=== PATIENT | female | born 1940 | race Caucasian/White ===

== ENCOUNTER 2018-05-02 11:14 | Inpatient (IN) | payer MEDICARE, OTHER ==
[2018-05-02] MEDS: SODIUM CHLORIDE 0.9% 1L BAG IV* (11:32)
[2018-05-02 11:41] LABS: ADD MAN DIFF? NO
[2018-05-02 11:43] LABS: BASOPHIL # 0.1 10^3/ul (0.0-0.1); BASOPHILS % 0.4 % (0.0-2.0); HEMATOCRIT 39.7 % (37.0-47.0); HEMOGLOBIN 13.1 g/dl (12.0-16.0); LYMPHOCYTES # 0.7 10^3/ul (0.8-2.9); LYMPHOCYTES % 3.5 % (15.0-51.0); MEAN CORPUSCULAR HEMOGLOBIN 32.7 pg (29.0-33.0); MEAN PLATELET VOLUME 11.3 fl (7.4-10.4); MONOCYTE # 1.3 10^3/ul (0.3-0.9); MONOCYTES % 6.5 % (0.0-11.0); NEUTROPHILS % 88.9 % (39.0-77.0); PLATELET COUNT 198 10^3/UL (140-415); RED BLOOD COUNT 4.01 10^6/ul (4.20-5.40); RED CELL DISTRIBUTION WIDTH 13.5 % (11.5-14.5)
[2018-05-02 11:43] LABS: WHITE BLOOD COUNT 19.1 10^3/ul (4.8-10.8)
[2018-05-02 12:05] LABS: INR 1.05; PROTIME 13.8 Sec (11.9-14.9); PT RATIO 1.1
[2018-05-02 12:06] LABS: PARTIAL THROMBOPLASTIN TIME 31.8 Sec (25.0-35.0)
[2018-05-02 12:11] LABS: LACTIC ACID 2.1 mmol/L (0.5-2.0)
[2018-05-02 12:12] LABS: ALANINE AMINOTRANSFERASE 96 IU/L (13-69); ALBUMIN 3.4 g/dl (3.3-4.9); ALBUMIN/GLOBULIN RATIO 0.75; ALKALINE PHOSPHATASE 169 IU/L (42-121); ANION GAP 16 (8-16); ASPARTATE AMINO TRANSFERASE 80 IU/L (15-46); BILIRUBIN,INDIRECT 0.3 mg/dl (0-1.1); BILIRUBIN,TOTAL 0.3 mg/dl (0.2-1.3); BLOOD UREA NITROGEN 36 mg/dl (7-20); CALCIUM 8.8 mg/dl (8.4-10.2); CARBON DIOXIDE 23 mmol/L (21-31); CHLORIDE 102 mmol/L (97-110); CREATININE 2.22 mg/dl (0.44-1.00); GLUCOSE 152 mg/dl (70-220); LIPASE 91 U/L (23-300); POTASSIUM 4.7 mmol/L (3.5-5.1); SODIUM 136 mmol/L (135-144); TOTAL PROTEIN 7.9 g/dl (6.1-8.1)
[2018-05-02] MEDS: VANCOMYCIN 1 GM (PMX) 250 ML IVPB (12:20)
[2018-05-02 12:24] LABS: B-TYPE NATRIURETIC PEPTIDE 2090 PG/ML (0-450); TROPONIN-I 0.015 ng/ml (0.000-0.120)
[2018-05-02] MEDS: CEFEPIME 2GM/50 ML (PMX) 50 ML IVPB (12:26)
[2018-05-02 12:50] LABS: AADO2 Arterial 41.5 mmHg (7.0-24.0); Allen Test ACCEPTAB; Arterial Base Excess -5.3 mmol/L (-3.0-3); Arterial Blood Gas Oxygen Sat 93.8 mmHG (95.0-100.0); Arterial COHb 0.6 % (0.0-3.0); Arterial MetHb 0.3 % (0.0-1.5); Arterial Total Hemglobin 12.7 g/dl (12.0-18.0); Arterial pCO2 33.2 mmhg (35-45); MODE ROOM AIR; Site Right Radial
[2018-05-02] MEDS: LIDOCAINE 1% (MPF) 5 ML VIAL SC (13:45)
[2018-05-02 13:57] LABS: LACTIC ACID 1.5 mmol/L (0.5-2.0)
[2018-05-02] MEDS: METHYLPREDNISOLONE 40 MG INJ IV (15:00)
[2018-05-02] MEDS ORDERED: VANCOMYCIN IV PER PHARMACY XX (15:00)
[2018-05-02] MEDS: ENOXAPARIN 80 MG/0.8 ML SYG SC (15:01)
[2018-05-02 15:22] LABS: ADD UMIC YES; UR ASCORBIC ACID NEGATIVE (NEGATIVE); UR BACTERIA MANY /HPF (NONE SEEN); UR BILIRUBIN (Dip) NEGATIVE (NEGATIVE); UR BLOOD (Dip) 2+ mg/dL (NEGATIVE); UR CLARITY TURBID (CLEAR); UR COLOR YELLOW (YELLOW); UR GLUCOSE (Dip) NEGATIVE (NEGATIVE); UR KETONES (Dip) NEGATIVE (NEGATIVE); UR LEUKOCYTE ESTERASE (Dip) 3+ Leu/ul (NEGATIVE); UR NITRITE (Dip) NEGATIVE (NEGATIVE); UR RBC 54 /HPF (0-5); UR SPECIFIC GRAVITY (Dip) 1.012 (1.003-1.030); UR SQUAMOUS EPITHELIAL CELL FEW /HPF (FEW); UR TOTAL PROTEIN (Dip) 2+ mg/dl (NEGATIVE); UR UROBILINOGEN (Dip) NEGATIVE (NEGATIVE); UR WBC > 182 /HPF (0-5)
[2018-05-02] MEDS: HYDROCODONE/APAP (10/325) TAB PO ×2 (15:51→17:41)
[2018-05-02] MEDS: VANCOMYCIN 1.5 GM in SOD CHLORIDE 0.9% 250 ML IVPB (16:42)
[2018-05-02] MEDS ORDERED: NACL 0.9% 3 ML SYG IV (17:30)
[2018-05-02 18:00] LABS: LACTIC ACID 1.6 mmol/L (0.5-2.0)
[2018-05-02] MEDS ORDERED: GLUCAGON 1 MG INJ IM (18:00)
[2018-05-02] MEDS ORDERED: GLUCOSE GEL 15 GRAM TUBE BUCCAL (18:00)
[2018-05-02] MEDS ORDERED: GLUCOSE GEL 15 GRAM TUBE PO ×2 (18:00)
[2018-05-02] MEDS ORDERED: DEXTROSE 50% 50 ML SYRINGE IV ×2 (18:00)
[2018-05-02] MEDS: INSULIN ASPART [NOVOLOG] 3 ML PEN SC ×2 (18:25→20:46)
[2018-05-02] MEDS: VANCOMYCIN 500MG/NS (PMX) 100 ML IVPB (18:56)
[2018-05-02] MEDS: LORAZEPAM 0.5 MG TAB PO (21:38)
[2018-05-02] MEDS: DOCUSATE SODIUM 100 MG CAP PO (21:39)
[2018-05-03] MEDS: LORAZEPAM 2 MG INJ IV ×2 (00:53→21:48)
[2018-05-03 06:19] LABS: HEMATOCRIT 35.8 % (37.0-47.0); HEMOGLOBIN 11.6 g/dl (12.0-16.0); MEAN CORPUSCULAR HEMOGLOBIN 32.5 pg (29.0-33.0); MEAN CORPUSCULAR HGB CONC 32.4 g/dl (32.0-37.0); MEAN CORPUSCULAR VOLUME 100.3 fl (82.0-101.0); MEAN PLATELET VOLUME 11.7 fl (7.4-10.4); PLATELET COUNT 179 10^3/UL (140-415); RED BLOOD COUNT 3.57 10^6/ul (4.20-5.40); RED CELL DISTRIBUTION WIDTH 13.7 % (11.5-14.5)
[2018-05-03 06:19] LABS: WHITE BLOOD COUNT 14.1 10^3/ul (4.8-10.8)
[2018-05-03 06:40] LABS: ADD MAN DIFF? YES; POSITIVE DIFF @See below
[2018-05-03 06:43] LABS: ALANINE AMINOTRANSFERASE 77 IU/L (13-69); ALBUMIN 2.9 g/dl (3.3-4.9); ALBUMIN/GLOBULIN RATIO 0.74; ALKALINE PHOSPHATASE 135 IU/L (42-121); ANION GAP 13 (8-16); ASPARTATE AMINO TRANSFERASE 54 IU/L (15-46); BILIRUBIN,INDIRECT 0.2 mg/dl (0-1.1); BILIRUBIN,TOTAL 0.2 mg/dl (0.2-1.3); BLOOD UREA NITROGEN 37 mg/dl (7-20); CALCIUM 8.7 mg/dl (8.4-10.2); CARBON DIOXIDE 20 mmol/L (21-31); CHLORIDE 110 mmol/L (97-110); CREATININE 1.56 mg/dl (0.44-1.00); GLUCOSE 142 mg/dl (70-220); POTASSIUM 4.3 mmol/L (3.5-5.1); SODIUM 139 mmol/L (135-144); TOTAL PROTEIN 6.8 g/dl (6.1-8.1)
[2018-05-03 06:58] LABS: HEMOGLOBIN A1C 5.9 % (0-5.9)
[2018-05-03 07:07] LABS: THYROID STIMULATING HORMONE 0.252 MIU/L (0.465-4.680)
[2018-05-03] MEDS: INSULIN ASPART [NOVOLOG] 3 ML PEN SC ×4 (07:55→21:00)
[2018-05-03] MEDS: DOCUSATE SODIUM 100 MG CAP PO ×2 (08:49→21:47)
[2018-05-03] MEDS: ENOXAPARIN 30 MG/0.3 ML SYG SC (08:50)
[2018-05-03] MEDS: ATENOLOL 50 MG TAB PO (08:51)
[2018-05-03] MEDS: POLYETHYLENE GLYCOL 17 GM PACKET PO (08:51)
[2018-05-03] MEDS ORDERED: CEFEPIME 1GM/50 ML (PMX) 50 ML IVPB (12:00)
[2018-05-03] MEDS: MEROPENEM 1 GM/50ML(PMX) 50 ML IVPB (14:43)
[2018-05-03] MEDS: HYDROCODONE/APAP (5/325) TAB PO (14:44)
[2018-05-03] MEDS: VANCOMYCIN 750 MG in SOD CHLORIDE 0.9% 150 ML IVPB (17:37)
[2018-05-03] MEDS: LORATADINE 10 MG TAB PO (21:30)
[2018-05-03] MEDS: DIPHENHYDRAMINE 50 MG CAP PO (22:58)
[2018-05-03] MEDS: PIPER-TAZO 2.25 GM (PMX) 50 ML IVPB (23:42)
[2018-05-04] MEDS: HYDROCODONE/APAP (5/325) TAB PO ×3 (00:58→17:12)
[2018-05-04] MEDS: PIPER-TAZO 2.25 GM (PMX) 50 ML IVPB ×3 (05:42→17:12)
[2018-05-04] MEDS: INSULIN ASPART [NOVOLOG] 3 ML PEN SC ×4 (07:55→20:27)
[2018-05-04] MEDS: ATENOLOL 50 MG TAB PO (08:36)
[2018-05-04] MEDS: LORATADINE 10 MG TAB PO (08:36)
[2018-05-04] MEDS: POLYETHYLENE GLYCOL 17 GM PACKET PO (08:36)
[2018-05-04] MEDS: DOCUSATE SODIUM 100 MG CAP PO ×2 (08:36→20:26)
[2018-05-04] MEDS: ENOXAPARIN 30 MG/0.3 ML SYG SC (09:09)
[2018-05-04] MEDS: VANCOMYCIN 750 MG in SOD CHLORIDE 0.9% 150 ML IVPB (17:13)
== END 2018-05-04 22:20 | disposition home or self-care (01) | DRG 871 ==
LOC: E/R 11:14 → TEL 13:41
PROC: 02HV33Z Insertion of Infusion Device into Superior Vena Cava, Percutaneous Approach (ICD-10-PCS; principal; 2018-05-02)
DX: A41.50 Gram-negative sepsis, unspecified (principal); R65.21 Severe sepsis with septic shock; J18.9 Pneumonia, unspecified organism; N39.0 Urinary tract infection, site not specified; N17.9 Acute kidney failure, unspecified
CPT/HCPCS: 36415; 36569; 36600; 71045; 71250; 76775; 76937; 80053; 81001; 82803; 82962; 83036; 83605; 83690; 83880; 84443; 84484; 85025; 85610; 85730; 86850; 86900; 86901; 87040; 87086; 93005; 93306; 96374; 96375; 97162; 99291-25

== ENCOUNTER 2018-05-30 03:34 | Observation (INO) | payer MEDICARE, OTHER ==
[2018-05-30 04:16] LABS: ADD MAN DIFF? NO
[2018-05-30 04:18] LABS: BASOPHILS % 0.3 % (0.0-2.0); EOSINOPHILS # 0.1 10^3/ul (0.0-0.5); HEMATOCRIT 42.8 % (37.0-47.0); HEMOGLOBIN 13.9 g/dl (12.0-16.0); LYMPHOCYTES # 1.1 10^3/ul (0.8-2.9); LYMPHOCYTES % 8.9 % (15.0-51.0); MEAN CORPUSCULAR HEMOGLOBIN 32.2 pg (29.0-33.0); MEAN CORPUSCULAR HGB CONC 32.5 g/dl (32.0-37.0); MEAN CORPUSCULAR VOLUME 99.1 fl (82.0-101.0); MEAN PLATELET VOLUME 10.2 fl (7.4-10.4); MONOCYTE # 0.9 10^3/ul (0.3-0.9); MONOCYTES % 7.3 % (0.0-11.0); NEUTROPHIL # 10.5 10^3/ul (1.6-7.5); PLATELET COUNT 264 10^3/UL (140-415); RED BLOOD COUNT 4.32 10^6/ul (4.20-5.40); RED CELL DISTRIBUTION WIDTH 13.6 % (11.5-14.5)
[2018-05-30 04:18] LABS: WHITE BLOOD COUNT 12.8 10^3/ul (4.8-10.8)
[2018-05-30 04:38] LABS: INR 0.97; PARTIAL THROMBOPLASTIN TIME 26.4 Sec (23.0-35.0)
[2018-05-30 04:51] LABS: ANION GAP 14 (8-16); BLOOD UREA NITROGEN 18 mg/dl (7-20); CALCIUM 9.5 mg/dl (8.4-10.2); CARBON DIOXIDE 27 mmol/L (21-31); CHLORIDE 102 mmol/L (97-110); CREATININE 0.97 mg/dl (0.44-1.00); GLUCOSE 146 mg/dl (70-220); POTASSIUM 4.6 mmol/L (3.5-5.1); SODIUM 138 mmol/L (135-144)
[2018-05-30 05:03] LABS: TROPONIN-I < 0.012 ng/ml (0.000-0.120)
[2018-05-30 05:36] LABS: ADD UMIC YES; UR ASCORBIC ACID NEGATIVE (NEGATIVE); UR BACTERIA FEW /HPF (NONE SEEN); UR BILIRUBIN (Dip) NEGATIVE (NEGATIVE); UR BLOOD (Dip) 1+ mg/dL (NEGATIVE); UR BUDDING YEAST FEW /HPF (NONE SEEN); UR CLARITY CLOUDY (CLEAR); UR COLOR YELLOW (YELLOW); UR GLUCOSE (Dip) NEGATIVE (NEGATIVE); UR KETONES (Dip) NEGATIVE (NEGATIVE); UR LEUKOCYTE ESTERASE (Dip) 3+ Leu/ul (NEGATIVE); UR NITRITE (Dip) NEGATIVE (NEGATIVE); UR RBC 26 /HPF (0-5); UR TOTAL PROTEIN (Dip) NEGATIVE (NEGATIVE); UR UROBILINOGEN (Dip) NEGATIVE (NEGATIVE); UR WBC > 182 /HPF (0-5)
[2018-05-30] MEDS ORDERED: DOCUSATE SODIUM 100 MG CAP PO (06:00)
[2018-05-30] MEDS ORDERED: NACL 0.9% 3 ML SYG IV (06:00)
[2018-05-30] MEDS ORDERED: BISACODYL (EC) 5 MG TAB PO (06:00)
[2018-05-30] MEDS: CEFTRIAXONE 1 GM/50 ML (PMX) 50 ML IVPB (07:26)
[2018-05-30] MEDS: FUROSEMIDE 40 MG INJ IV (07:27)
[2018-05-30 07:51] LABS: LACTIC ACID 1.6 mmol/L (0.5-2.0)
[2018-05-30] MEDS: ONDANSETRON 4 MG INJ IV (09:22)
[2018-05-30] MEDS: ACETAMINOPHEN 325 MG TAB PO (09:22)
[2018-05-30] MEDS ORDERED: SOD CHLORIDE 0.9% 1,000 ML IV (15:00)
[2018-05-30] MEDS: traMADol 50 MG TAB PO (15:11)
[2018-05-30] MEDS: LORAZEPAM 2 MG INJ IV (15:11)
[2018-05-30] MEDS: [UNRECOGNIZED DRUG - REMARK] XX (16:00)
[2018-05-30] MEDS: SOD CHLORIDE 0.9% 1,000 ML IV (16:09)
[2018-05-30] MEDS: METHYLPREDNISOLONE 40 MG INJ IV (16:09)
[2018-05-30] MEDS: LEVOFLOXACIN 500MG/D5W (PMX) 100 ML IVPB (16:09)
[2018-05-30 16:55] LABS: CREATINE KINASE 35 IU/L (23-200)
[2018-05-30 17:08] LABS: CK INDEX 1.8; CK-MB 0.64 ng/ml (0.0-2.4); TROPONIN-I < 0.012 ng/ml (0.000-0.120)
[2018-05-30] MEDS: DOCUSATE SODIUM 100 MG CAP PO (17:53)
[2018-05-30] MEDS ORDERED: LEVALBUTEROL (NEB) 0.31 MG/3 ML AMP HHN (19:00)
[2018-05-30] MEDS: ARFORMOTEROL TARTRATE 15MCG/2 ML AMP NEB (20:32)
[2018-05-30 20:45] LABS: AADO2 Arterial 38.2 mmHg (7.0-24.0); Allen Test ACCEPTAB; Arterial Base Excess 1.4 mmol/L (-3.0-3); Arterial Blood Gas Oxygen Sat 91.6 mmHG (95.0-100.0); Arterial COHb 0.8 % (0.0-3.0); Arterial Fraction of Oxyhgb 90.9 % (93.0-99.0); Arterial HCO3 26.1 mmol/L (22.0-26.0); Arterial MetHb 0 % (0.0-1.5); Arterial Total Hemglobin 13.2 g/dl (12.0-18.0); Arterial pCO2 41.5 mmhg (35-45); MODE ROOM AIR; Site Right Radial
[2018-05-30] MEDS: ATORVASTATIN 40 MG TAB PO (20:47)
[2018-05-30 20:57] LABS: CREATINE KINASE 33 IU/L (23-200)
[2018-05-30 21:17] LABS: TROPONIN-I < 0.012 ng/ml (0.000-0.120)
[2018-05-30] MEDS: ZOLPIDEM 5 MG TAB PO (21:39)
[2018-05-30 21:41] LABS: CK INDEX 2.3; CK-MB 0.75 ng/ml (0.0-2.4)
[2018-05-31 06:02] LABS: ADD MAN DIFF? NO
[2018-05-31 06:03] LABS: WHITE BLOOD COUNT 10.6 10^3/ul (4.8-10.8)
[2018-05-31 06:03] LABS: BASOPHILS % 0.1 % (0.0-2.0); HEMATOCRIT 37.1 % (37.0-47.0); HEMOGLOBIN 11.9 g/dl (12.0-16.0); LYMPHOCYTES # 1.4 10^3/ul (0.8-2.9); LYMPHOCYTES % 13.1 % (15.0-51.0); MEAN CORPUSCULAR HEMOGLOBIN 31.9 pg (29.0-33.0); MEAN CORPUSCULAR HGB CONC 32.1 g/dl (32.0-37.0); MEAN CORPUSCULAR VOLUME 99.5 fl (82.0-101.0); MEAN PLATELET VOLUME 9.7 fl (7.4-10.4); MONOCYTE # 0.8 10^3/ul (0.3-0.9); MONOCYTES % 7.6 % (0.0-11.0); NEUTROPHIL # 8.3 10^3/ul (1.6-7.5); NEUTROPHILS % 78.8 % (39.0-77.0); PLATELET COUNT 230 10^3/UL (140-415); RED BLOOD COUNT 3.73 10^6/ul (4.20-5.40)
[2018-05-31 06:37] LABS: ALANINE AMINOTRANSFERASE 42 IU/L (13-69); ALBUMIN 2.8 g/dl (3.3-4.9); ALBUMIN/GLOBULIN RATIO 0.71; ALKALINE PHOSPHATASE 135 IU/L (42-121); ANION GAP 6 (8-16); ASPARTATE AMINO TRANSFERASE 49 IU/L (15-46); BILIRUBIN,INDIRECT 0.4 mg/dl (0-1.1); BILIRUBIN,TOTAL 0.4 mg/dl (0.2-1.3); BLOOD UREA NITROGEN 18 mg/dl (7-20); CALCIUM 8.7 mg/dl (8.4-10.2); CARBON DIOXIDE 34 mmol/L (21-31); CHLORIDE 103 mmol/L (97-110); CHOL/HDL RATIO 3.6 RATIO; CHOLESTEROL 165 mg/dl (100-200); CREATININE 0.84 mg/dl (0.44-1.00); GLUCOSE 118 mg/dl (70-220); HDL CHOLESTEROL 45 mg/dl (33-92); LDL CHOLESTEROL,CALCULATED 105 mg/dl; POTASSIUM 4.2 mmol/L (3.5-5.1); SODIUM 139 mmol/L (135-144); TOTAL PROTEIN 6.7 g/dl (6.1-8.1); TRIGLYCERIDES 74 mg/dl (0-149)
[2018-05-31 07:07] LABS: THYROID STIMULATING HORMONE 0.297 MIU/L (0.465-4.680)
[2018-05-31] MEDS: [UNRECOGNIZED DRUG - REMARK] XX ×3 (08:00→16:00)
[2018-05-31] MEDS: ARFORMOTEROL TARTRATE 15MCG/2 ML AMP NEB ×2 (08:24→20:48)
[2018-05-31] MEDS: METHYLPREDNISOLONE 40 MG INJ IV (08:51)
[2018-05-31] MEDS: ASPIRIN 81 MG TAB PO (08:52)
[2018-05-31] MEDS: LORATADINE 10 MG TAB PO (08:52)
[2018-05-31] MEDS: DOCUSATE SODIUM 100 MG CAP PO ×2 (08:52→20:54)
[2018-05-31] MEDS: PANTOPRAZOLE (EC) 40 MG TAB PO (08:52)
[2018-05-31] MEDS ORDERED: NON-FORMULARY/PATIENT OWN MED (Mirabegron (Myrbetriq) 50 MG) PO (09:00)
[2018-05-31] MEDS ORDERED: BENAZEPRIL 20 MG TAB PO (09:00)
[2018-05-31] MEDS ORDERED: ATENOLOL 50 MG TAB PO (09:00)
[2018-05-31 09:16] LABS: HEMOGLOBIN A1C 5.4 % (0-5.9)
[2018-05-31] MEDS: ENOXAPARIN 40 MG/0.4 ML SYG SC (10:28)
[2018-05-31] MEDS: FUROSEMIDE 40 MG INJ IV (13:33)
[2018-05-31] MEDS: LEVOFLOXACIN 500MG/D5W (PMX) 100 ML IVPB (16:43)
[2018-05-31] MEDS ORDERED: MAGNESIUM CITRATE 300 ML BTL PO (19:30)
[2018-05-31] MEDS: LORAZEPAM 2 MG INJ IV (19:52)
[2018-05-31] MEDS: ATORVASTATIN 40 MG TAB PO (20:55)
[2018-05-31] MEDS: ZOLPIDEM 5 MG TAB PO (20:55)
[2018-06-01 07:18] LABS: ADD MAN DIFF? NO
[2018-06-01 07:24] LABS: WHITE BLOOD COUNT 10.1 10^3/ul (4.8-10.8)
[2018-06-01 07:24] LABS: BASOPHILS % 0.4 % (0.0-2.0); EOSINOPHILS # 0.1 10^3/ul (0.0-0.5); EOSINOPHILS % 0.6 % (0.0-7.0); HEMATOCRIT 36.3 % (37.0-47.0); HEMOGLOBIN 11.8 g/dl (12.0-16.0); LYMPHOCYTES # 1.9 10^3/ul (0.8-2.9); LYMPHOCYTES % 18.7 % (15.0-51.0); MEAN CORPUSCULAR HEMOGLOBIN 32.2 pg (29.0-33.0); MEAN CORPUSCULAR HGB CONC 32.5 g/dl (32.0-37.0); MEAN CORPUSCULAR VOLUME 99.2 fl (82.0-101.0); MEAN PLATELET VOLUME 10.4 fl (7.4-10.4); MONOCYTES % 10.3 % (0.0-11.0); NEUTROPHILS % 69.5 % (39.0-77.0); PLATELET COUNT 250 10^3/UL (140-415); RED BLOOD COUNT 3.66 10^6/ul (4.20-5.40); RED CELL DISTRIBUTION WIDTH 13.9 % (11.5-14.5)
[2018-06-01 07:59] LABS: ANION GAP 3 (5-13); BLOOD UREA NITROGEN 20 mg/dl (7-20); CALCIUM 8.8 mg/dl (8.4-10.2); CARBON DIOXIDE 34 mmol/L (21-31); CHLORIDE 101 mmol/L (97-110); CREATININE 0.93 mg/dl (0.44-1.00); GLUCOSE 109 mg/dl (70-220); MAGNESIUM 1.9 mg/dl (1.7-2.5); PHOSPHORUS 3.7 mg/dl (2.5-4.9); POTASSIUM 3.6 mmol/L (3.5-5.1); SODIUM 138 mmol/L (135-144)
[2018-06-01] MEDS: [UNRECOGNIZED DRUG - REMARK] XX ×3 (08:00→16:00)
[2018-06-01] MEDS: LORATADINE 10 MG TAB PO (08:28)
[2018-06-01] MEDS: PANTOPRAZOLE (EC) 40 MG TAB PO (08:28)
[2018-06-01] MEDS: DOCUSATE SODIUM 100 MG CAP PO ×2 (08:29→20:33)
[2018-06-01] MEDS: METHYLPREDNISOLONE 40 MG INJ IV (08:29)
[2018-06-01] MEDS: ASPIRIN 81 MG TAB PO (08:29)
[2018-06-01] MEDS: FUROSEMIDE 40 MG INJ IV (08:29)
[2018-06-01] MEDS: POLYETHYLENE GLYCOL 17 GM PACKET PO (08:30)
[2018-06-01] MEDS: ENOXAPARIN 40 MG/0.4 ML SYG SC (09:44)
[2018-06-01] MEDS: MAGNESIUM CITRATE 300 ML BTL PO (11:45)
[2018-06-01] MEDS: METOPROLOL 25 MG TAB PO ×2 (13:22→20:34)
[2018-06-01] MEDS: traMADol 50 MG TAB PO ×2 (13:42→20:34)
[2018-06-01 14:43] LABS: FREE THYROXINE INDEX (Calc) 3.03 ug/ml (0.65-3.89); T3 UPTAKE 36.1 % (23.5-40.5); T4 (THYROXINE) 8.4 ug/dl (5.5-11.0)
[2018-06-01] MEDS: ONDANSETRON 4 MG INJ IV (15:12)
[2018-06-01] MEDS: LEVOFLOXACIN 500MG/D5W (PMX) 100 ML IVPB (17:09)
[2018-06-01] MEDS: ARFORMOTEROL TARTRATE 15MCG/2 ML AMP NEB (19:52)
[2018-06-01] MEDS: ATORVASTATIN 40 MG TAB PO (20:34)
[2018-06-02] MEDS: LEVOFLOXACIN 500 MG TAB PO (06:06)
[2018-06-02] MEDS: [UNRECOGNIZED DRUG - REMARK] XX ×3 (08:00→16:00)
[2018-06-02] MEDS: ARFORMOTEROL TARTRATE 15MCG/2 ML AMP NEB ×2 (08:40→20:35)
[2018-06-02] MEDS: METOPROLOL 25 MG TAB PO (09:00)
[2018-06-02] MEDS: FUROSEMIDE 40 MG INJ IV (09:00)
[2018-06-02] MEDS: METHYLPREDNISOLONE 40 MG INJ IV (09:06)
[2018-06-02] MEDS: LORATADINE 10 MG TAB PO (09:26)
[2018-06-02] MEDS: DOCUSATE SODIUM 100 MG CAP PO (09:26)
[2018-06-02] MEDS: ASPIRIN 81 MG TAB PO (09:26)
[2018-06-02] MEDS: POLYETHYLENE GLYCOL 17 GM PACKET PO (09:27)
[2018-06-02] MEDS: PANTOPRAZOLE (EC) 40 MG TAB PO (09:32)
[2018-06-02] MEDS: ENOXAPARIN 40 MG/0.4 ML SYG SC (10:40)
[2018-06-02] MEDS: LACTULOSE 30ML CUP PO (13:04)
[2018-06-02] MEDS: MINERAL OIL 133 ML ENEMA PR (13:04)
== END 2018-06-02 19:05 | disposition home health service (06) ==
LOC: E/R 03:34 → TEL 05:29
DX: R09.02 Hypoxemia (principal); A41.9 Sepsis, unspecified organism; J84.10 Pulmonary fibrosis, unspecified; N39.0 Urinary tract infection, site not specified; R00.0 Tachycardia, unspecified; Z99.3 Dependence on wheelchair
CPT/HCPCS: 36600; 71045; 74018; 80048; 80053; 80061; 81001; 82550; 82553; 82803; 83036; 83605; 83735; 84100; 84436; 84443; 84479; 84484; 85025; 85610; 85730; 87040; 87081; 87086; 90686; 93005; 93306; 93971; 94640; 94664; G0378

== ENCOUNTER 2018-09-04 14:34 | Emergency (ER) | payer MEDICARE, OTHER ==
[2018-09-04] MEDS: MINERAL OIL 133 ML ENEMA PR (16:00)
[2018-09-04 16:32] LABS: ANION GAP 9 (5-13)
[2018-09-04 16:43] LABS: BLOOD UREA NITROGEN 21 mg/dl (7-20); CALCIUM 8.9 mg/dl (8.4-10.2); CARBON DIOXIDE 24 mmol/L (21-31); CHLORIDE 105 mmol/L (97-110); CREATININE 0.75 mg/dl (0.44-1.00); GLUCOSE 113 mg/dl (70-220); POTASSIUM 4.2 mmol/L (3.5-5.1); SODIUM 138 mmol/L (135-144)
[2018-09-04] MEDS ORDERED: ONDANSETRON 4 MG INJ IV (21:00)
[2018-09-04] MEDS ORDERED: ACETAMINOPHEN 325 MG TAB PO (21:00)
== END 2018-09-04 21:49 | disposition home or self-care (01) ==
LOC: E/R 14:34
DX: K59.09 Other constipation (principal); I10 Essential (primary) hypertension; Z79.82 Long term (current) use of aspirin
CPT/HCPCS: 74018; 80048; 99283-25